=== PATIENT | female | born 1970 | race Caucasian/White ===

== ENCOUNTER → 2024-07-22 09:57 | Outpatient (CLI) | payer OTHER, SELFPAY ==
[2024-07-22 10:52] LABS: Add Manual Diff / Slide Review NO; Basophils Absolute Auto 0 /uL (0-100); Basophils Percent Auto 0.4 % (0-2); Eosinophils Absolute Auto 100 /uL (0-450); Eosinophils Percent Auto 1.6 % (2-4); Hematocrit 42.4 % (36-46); Hemoglobin 13.7 g/dL (12.0-16.0); Lymphocytes Absolute Auto 3200 /uL (1100-4500); Lymphocytes Percent Auto 50.4 % (25-40); Mean Corpuscular HGB Conc 32.4 % (30-36); Mean Corpuscular Hemoglobin 27.1 PG (26-34); Mean Corpuscular Volume 83.7 fL (80-100); Monocytes Absolute Auto 400 /uL (0-900); Monocytes Percent Auto 7.2 % (3-14); Neutrophils Absolute Auto 2500 /uL (1500-7000); Neutrophils Percent Auto 40.4 % (50-75); Platelet Count 240 X10^3/uL (150-400); Red Blood Cell Count 5.06 X10^6/uL (4.0-5.2); White Blood Cell Count 6.3 X10^3/uL (4.5-11.0)
[2024-07-22 11:08] LABS: Hemoglobin A1C% w Est Avg Glu 5.4 % (4.0-6.0)
[2024-07-22 11:14] LABS: Alanine Aminotransferase 26 IU/L (<35); Albumin 4.1 g/dL (3.5-5.0); Albumin Globulin Ratio 1.3 (1.0-2.8); Alkaline Phosphatase 54 U/L (38-126); Aspartate Aminotransferase 31 IU/L (14-36); BUN Creatinine Ratio 18.2 (6-22); Bilirubin Total 0.6 mg/dL (0.2-1.3); Blood Urea Nitrogen 14 mg/dL (7-17); Calcium 8.9 mg/dL (8.4-10.2); Carbon Dioxide 26 mmol/L (22-32); Chloride 105 mmol/L (98-107); Cholesterol 178 mg/dL (140-199); Estimated Glomerular Filt Rate > 60 mL/min (>60); Globulin 3.2 g/dL (1.7-4.1); Glucose 93 mg/dL (70-100); HDL Cholesterol 59 mg/dL (40-60); HEMOLYSIS < 15 (0-50); LDL Cholesterol Calculated 103 mg/dL (<100); Potassium 3.8 mmol/L (3.4-5.1); Sodium 136 mmol/L (137-145); Total Protein 7.3 g/dL (6.3-8.2); Triglycerides 79 mg/dL (35-150)
[2024-07-22 11:29] LABS: Vitamin D 25 Hydroxy (D3) 33.8 ng/mL (30.0-100.0)
[2024-07-22 11:43] LABS: TSH w/ Reflex to FT4 0.04 uIU/mL (0.47-4.68)
[2024-07-22 13:10] LABS: Free T4, Direct Thyroxine 0.96 ng/dL (0.78-2.19)
== END ==
PROVIDERS: PCP Family Medicine; Referring Provider Family Medicine; Visit Provider Family Medicine
DX: Z13.1 Encounter for screening for diabetes mellitus (principal); R76.8 Other specified abnormal immunological findings in serum; E66.9 Obesity, unspecified; Z68.30 Body mass index [BMI] 30.0-30.9, adult; G47.00 Insomnia, unspecified; I42.9 Cardiomyopathy, unspecified; K58.9 Irritable bowel syndrome, unspecified; R21 Rash and other nonspecific skin eruption; Z79.890 Hormone replacement therapy
CPT/HCPCS: 36415; 80053; 80061; 82306; 83036; 84439; 84443; 84481; 85025

== ENCOUNTER → 2024-07-31 12:38 | Outpatient (CLI) | payer OTHER, SELFPAY ==
[2024-07-31 13:59] LABS: Free T3, Triiodothyronine Free 4.06 pg/mL (2.77-5.27)
[2024-08-02 11:08] LABS: Anti Thyroglobulin Antibody <1.0 IU/mL (0.0-0.9); Thyroid Peroxidase Antibodies 11 IU/mL (0-34)
== END ==
LOC: LAB 12:41
PROVIDERS: PCP Family Medicine; Referring Provider Family Medicine; Visit Provider Family Medicine
DX: R79.89 Other specified abnormal findings of blood chemistry (principal)
CPT/HCPCS: 36415; 84481; 86376; 86800

== ENCOUNTER → 2024-09-27 09:13 | Outpatient (CLI) | payer OTHER, SELFPAY ==
--- NOTE | 2024-09-27 09:15 | DI.ECHO.S_ITS ---
[facility] : : [address] : : [place] : : [id number] : : Phone: [phone] Echocardiogram Report + + :Name: ARIS COLEY Study Date: 09/27/2024 Height: 65.5 in: :[facility] ReadingLocation: Weight: 190 lb : : Gender: Female BSA: 1.9 m2 : :: 1970 Age: 53 yrs BP: 120/84 mmHg: :Reason For Study: VENTRICULAR HYPERTROPHY, CARDIOMYOPATHY : :Ordering Physician: NARDA, : :ROBERT Performed By: Haleigh Anaya : :Referring: ROBERT LABOY : + + Interpretation Summary Left ventricular wall thickness is moderately increased. The ejection fraction is estimated to be 50-55%. There are no focal wall motion abnormalities. The right ventricle is normal size. Right ventricular systolic function is borderline reduced. The right ventricular systolic pressure is estimated to be at least 25 mmHg based on an estimated right atrial pressure of 3 mm Hg. The left atrial size is normal. There is no significant valvular heart disease. The aortic root is normal size. Consider cardiac MRI to further evaluate for hypertophic cardiomyopathy. Procedure: A two-dimensional transthoracic echocardiogram with color flow and Doppler was performed. The study quality was technically adequate. There is no prior echocardiogram noted for this patient. The patient was in sinus rhythm with heart rates between 61-70 bpm during the exam. Left Ventricle: The left ventricle is normal in size. Left ventricular wall thickness is moderately increased. The ejection fraction is estimated to be 50-55%. There are no focal wall motion abnormalities. Diastolic parameters suggest probable normal left ventricular diastolic function and normal filling pressures. Right Ventricle: The right ventricle is normal size. Right ventricular systolic function is borderline reduced. Atria: The left atrial size is normal. Right atrial size is normal. There is no Doppler evidence for an interatrial shunt. Mitral Valve: There is mild mitral annular calcification. The mitral valve leaflets appear mildly thickened, but open well. There is trace mitral regurgitation. Aortic Valve: The aortic valve is trileaflet. The aortic valve opens well. There is no aortic valve stenosis. No aortic regurgitation is present. Tricuspid Valve: The tricuspid valve leaflets are thickened and/or calcified, but open well. There is mild tricuspid regurgitation. The right ventricular systolic pressure is estimated to be at least 25 mmHg based on an estimated right atrial pressure of 3 mm Hg. Pulmonic Valve: The pulmonic valve leaflets are thin and pliable; valve motion is normal. There is mild pulmonic regurgitation. There is no significant valvular heart disease. Great Vessels: The aortic root is normal size. The dimensions of the ascending aorta are normal. The IVC is of normal diameter and collapses greater than 50% with a sniff. This suggests a low right atrial pressure of 3 mm Hg. Pericardium/ Pleura There is no pericardial effusion. There is no pleural effusion. MMode/2D Measurements & Calculations LVIDd: 4.1 cm LVOT diam: 2.0 cm LVIDs: 2.9 cm Ao root diam: 2.6 cm FS: 29.0 % asc Aorta Diam: 2.9 cm EPSS: 0.25 cm Ao Arch Diam (Prox Trans): 2.6 cm IVSd: 1.4 cm LVPWd: 1.3 cm LV shin. diameter/BSA (cm/m^2): 2.1 LV sys. diameter/BSA (cm/m^2): 1.5 LA A2 area: 18.0 cm2 RA long axis: 5.1 cm LA A4 area: 17.9 cm2 RA area: 15.9 cm2 LA length (vol): 5.6 cm RA vol: 42.5 ml LA vol: 48.7 ml RA : 21.8 ml/m2 LA vol index: 25.0 ml/m2 IVC diam: 1.7 cm RVD1 (basal): 3.2 cm TAPSE: 1.4 cm Doppler Measurements & Calculations Ao V2 max: 133.4 cm/sec LVOT Max Marcos: 92.5 cm/sec Ao V2 mean: 97.6 cm/sec LV V1 max P.4 mmHg Ao max P.1 mmHg LV V1 VTI: 19.5 cm Ao mean P.2 mmHg MINA(I,D): 2.4 cm2 Ao V2 VTI: 27.1 cm MINA(V,D): 2.3 cm2 sev ratio: 0.72 MINA indexed to BSA (cm^2/m^2): 1.2 MV E max marcos: 64.0 cm/sec TR max marcos: 234.3 cm/sec MV A max marcos: 49.7 cm/sec TR max P.0 mmHg MV E/A: 1.3 PA V2 max: 98.8 cm/sec Med Peak E' Marcos: 5.7 cm/sec PA V2 mean: 68.6 cm/sec E/E' med: 11.3 PA mean P.1 mmHg Lat Peak E' Marcos: 4.2 cm/sec E/E' lat: 15.3 E/e' average: 13.3 MV dec time: 0.27 sec SV(OT): 64.2 ml Reading Physician:01:[id number] PM
[2024-09-27 11:56] LABS: TSH w/ Reflex to FT4 2.44 uIU/mL (0.47-4.68)
== END ==
LOC: ECHO 09:14
PROVIDERS: PCP Family Medicine; Referring Provider Family Medicine; Visit Provider Family Medicine
DX: I08.1 Rheumatic disorders of both mitral and tricuspid valves; I42.9 Cardiomyopathy, unspecified; R60.0 Localized edema; R79.89 Other specified abnormal findings of blood chemistry
CPT/HCPCS: 36415; 84443; 93306

== ENCOUNTER → 2025-07-04 08:08 | Outpatient (CLI) | payer OTHER, SELFPAY ==
--- NOTE | 2025-07-04 08:09 | DI.NM.S_ITS ---
PROCEDURE: NM EXERCISE TREADMILL NON NUC COMPARISON: None. INDICATIONS: Non compaction cardiomyopathy FINDINGS: Rest ECG sinus rhythm, LVH with secondary repolarization abnormality, 64 bpm. Brandon protocol 4:33, maximum heart rate 130 bpm (78% peak predicted), peak blood pressure 136/90, 7.0 METS, RONI +38%. Exercise ECG sinus tachycardia, worsening of the baseline repolarization abnormality in diffuse leads. No ectopy or arrhythmia. The patient did not report exercise-induced chest discomfort. IMPRESSION: Equivocal study for ischemia. Due to baseline ST abnormality, this study cannot be interpreted for ischemia. No evidence of exercise-induced ectopy or arrhythmia. Reduced exercise capacity. Dictated by: Masha Richardson D.O. on 07/04/2025 at 16:56 Approved by: Masha Richardson D.O. on 07/04/2025 at 16:59
== END ==
LOC: NUCM 08:09
PROVIDERS: PCP Family Medicine; Referring Provider Internal Medicine; Visit Provider Internal Medicine
DX: R94.39 Abnormal result of other cardiovascular function study (principal); R00.0 Tachycardia, unspecified; I42.8 Other cardiomyopathies
CPT/HCPCS: 93017